=== PATIENT | female | born 1940 ===

== ENCOUNTER 2017-05-25 11:55 | Inpatient (IN) | payer MEDICARE, MEDICAID ==
[2017-05-25 12:00] VITALS: BMI 17.9
[2017-05-25] MEDS ORDERED: Sodium Chloride 0.9% 1,000 ML IV ONE ×2 (12:55→13:33)
[2017-05-25 13:03] LABS: LYMPH # 0.6 K/uL (1.0-4.3); LYMPH % 5.1 % (20.0-40.0); MEAN CORPUSCULAR HEMOGLOBIN 20.8 pg (27.0-31.0); MEAN CORPUSCULAR HGB CONC 31.3 g/dL (33.0-37.0); MEAN PLATELET VOLUME 9.2 fL (7.2-11.7); MONO # 0.3 K/uL (0.0-0.8); MONO % 2.3 % (0.0-10.0); NRBC % 0.2 % (0.0-2.0); PLATELET COUNT 240 K/uL (130-400); RED CELL DISTRIBUTION WIDTH 16.8 % (11.5-14.5)
[2017-05-25 13:05] LABS: MEAN CELL VOLUME 66.4 fL (81.0-99.0); WHITE BLOOD COUNT 11.6 K/uL (4.8-10.8)
[2017-05-25 13:13] LABS: CHLORIDE 96 mmol/L (98-107); POTASSIUM 4.8 mmol/L (3.6-5.2); SODIUM 132 mmol/L (132-148)
[2017-05-25 13:15] LABS: BILIRUBIN,TOTAL 1.8 mg/dL (0.2-1.3); GFR AFRICAN-AMERICAN > 60
[2017-05-25 13:16] LABS: ALB/GLOB RATIO 1.8 (1.0-2.1); ALKALINE PHOSPHATASE 54 U/L (38-126); ALT/SGPT 21 U/L (9-52); AST/SGOT 18 U/L (14-36); BLOOD UREA NITROGEN 28 mg/dL (7-17); TOTAL PROTEIN 7.7 g/dL (6.3-8.3)
--- NOTE | 2017-05-25 13:26 | RAD ---
PROCEDURE: CHEST RADIOGRAPH, 1 VIEW HISTORY: BASELINE COMPARISON: 02/22/2016 FINDINGS: LUNGS: Biapical pleural thickening. Upper lobe granulomatous changes. No focal infiltrate or effusion. PLEURA: No pneumothorax or pleural fluid seen. CARDIOVASCULAR: Left-sided pacemaker. Calcification at the aortic knob. OSSEOUS STRUCTURES: No significant abnormalities. VISUALIZED UPPER ABDOMEN: Normal. OTHER FINDINGS: None. IMPRESSION: Biapical pleural thickening. Upper lobe granulomatous changes. No focal infiltrate or effusion.
[2017-05-25 13:30] LABS: NEUTROPHIL 96 % (50-75); TOTAL CELLS COUNTED 100
[2017-05-25 13:35] LABS: CARBON DIOXIDE 12 mmol/L (22-30); GLUCOSE,RANDOM 345 mg/dL (65-105)
[2017-05-25] MEDS ORDERED: (Novolin R) Insulin Human Regular 100 units/ml vial IV STA (14:03)
[2017-05-25] MEDS ORDERED: (Novolin R) Insulin Human Regular 100 units/ml vial ONE (14:28)
--- NOTE | 2017-05-25 14:29 | C.PDOC ---
History Of Present Illness 76 y/o female brought to ED for evaluation on confusion and loss of appetite for 5 days. Family members at bedside state she started new medications on Thursday and believe symptoms are due to medication. Family states they have tried to make her eat and have only been mildly successful yesterday. No other complaints at this time. Time Seen by Provider: 05/25/17 13:03 Chief Complaint (Nursing): Medical Clearance History Per: Patient, Family History/Exam Limitations: clinical condition Onset/Duration Of Symptoms: Days Current Symptoms Are (Timing): Still Present Past Medical History Reviewed: Historical Data, Nursing Documentation, Vital Signs Vital Signs: Last Vital Signs Temp 97.9 F 05/25/17 12:14 Pulse 60 05/25/17 12:14 Resp 22 05/25/17 12:14 BP 167/60 H 05/25/17 12:14 Pulse Ox 97 05/25/17 14:32 - Medical History PMH: Anemia, Diabetes, Fractures (T12 2014), Gall Bladder Disease (gallstones), HTN, Hypercholesterolemia, Hypothyroidism Surgical History: Cholecystectomy (removal of gallstones 10YRS AGO), Pacemaker - [facility] Procedures TRANSFUSE NONAUT RED BLOOD CELLS IN PERIPH VEIN, PERC (02/22/16) Family History: States: No Known Family Hx - Social History Hx Tobacco Use: No Hx Alcohol Use: No Hx Substance Use: No - Immunization History Hx Tetanus Toxoid Vaccination: No Hx Influenza Vaccination: No Hx Pneumococcal Vaccination: No Review Of Systems Except As Marked, All Systems Reviewed And Found Negative. Constitutional: Negative for: Fever, Chills Cardiovascular: Negative for: Chest Pain Respiratory: Negative for: Shortness of Breath Gastrointestinal: Negative for: Nausea, Vomiting Skin: Negative for: Rash Neurological: Positive for: Confusion. Negative for: Weakness, Numbness Physical Exam - Physical Exam Appears: Confused, Other (Flat affect ) Skin: Warm, Dry, No Rash Head: Atraumatic Eye(s): bilateral: PERRL, EOMI, Scleral Icterus Oral Mucosa: Dry Neck: Normal ROM, Supple Chest: Symmetrical Cardiovascular: Rhythm Regular, No Murmur Respiratory: Normal Breath Sounds, No Rales, No Rhonchi, No Wheezing Gastrointestinal/Abdominal: Soft, No Tenderness, No Guarding, No Rebound Extremity: Normal ROM, Capillary Refill (<2 seconds\) Neurological/Psych: Oriented x3 ED Course And Treatment - Laboratory Results Result Diagrams: 05/25/17 12:59 05/25/17 12:59 Lab Interpretation: Normal (ABG neg,) O2 Sat by Pulse Oximetry: 97 (RA) Pulse Ox Interpretation: Normal - Radiology CXR: Interpreted by Me CXR Interpretation: Yes: No Acute Disease Progress Note: IVF's Reevaluation Time: 15:35 Reassessment Condition: Improved - Physician Consult Information Outcome Of Conversation: 1310 and 1500, d/w reddy Taylor to Obs. Medical Decision Making Medical Decision Making: ? MS changes after starting 3 new psych meds no sources nor signs of infection, not septic. consider dehydration, IVF's started. Disposition Doctor Will See Patient In The: Hospital Counseled Patient/Family Regarding: Studies Performed, Diagnosis - Disposition Disposition: HOSPITALIZED Disposition Time: 15:37 Condition: GOOD - Clinical Impression Clinical Impression: Change in mental status - Scribe Statement The provider has reviewed the documentation as recorded by the Scribparvez Anguiano All medical record entries made by the Charibparvez were at my direction and personally dictated by me. I have reviewed the chart and agree that the record accurately reflects my personal performance of the history, physical exam, medical decision making, and the department course for this patient. I have also personally directed, reviewed, and agree with the discharge instructions and disposition.
[2017-05-25 14:56] LABS: RBC URINE 1 /hpf (0-3); URINE BILIRUBIN NEGATIVE (NEGATIVE); URINE BLOOD NEGATIVE (NEGATIVE); URINE COLOR Yellow (YELLOW); URINE GLUCOSE (UA) 3+ mg/dL (Normal); URINE HYALINE CAST 0-2 /lpf (0-2); URINE KETONE 2+ mg/dL (NEGATIVE); URINE LEUKOCYTE ESTERASE NEG Leu/uL (Negative); URINE PROTEIN 2+ mg/dL (NEGATIVE); URINE UROBILINOGEN NORMAL mg/dL (0.2-1.0); WBC URINE 1 /hpf (0-5)
[2017-05-25 15:31] LABS: DRAW SITE RB
[2017-05-25] MEDS: Sodium Chloride 0.9% 1,000 ML IV SCH (19:12)
--- NOTE | 2017-05-25 20:07 | CP.PCM.PN ---
Subjective - Date & Time of Evaluation Date of Evaluation: 05/25/17 Time of Evaluation: 20:06 - Subjective Subjective: pt with aniemia poorly responding changes in meds noted\ likely meds related CT head MRI ivf sepsis less likly neuro watch neuro consult will f/u Objective - Vital Signs/Intake and Output Vital Signs (last 24 hours): Temp Pulse Resp BP Pulse Ox 97.9 F 61 16 167/43 H 100 05/25/17 12:14 05/25/17 16:06 05/25/17 16:06 05/25/17 16:06 05/25/17 16:06 - Medications Medications: Current Medications Aspirin (Ecotrin) 81 mg PO DAILY [facility] Famotidine (Pepcid) 20 mg IVP DAILY [facility] Heparin Sodium (Porcine) (Heparin) 5,000 units SC Q8 [facility] Sodium Chloride (Sodium Chloride 0.9%) 1,000 mls @ 100 mls/hr IV .Q10H [facility] Last Admin: 05/25/17 19:12 Dose: 100 mls/hr Levothyroxine Sodium (Synthroid) 25 mcg PO DAILY@0630 [facility]
[2017-05-26] MEDS: Sodium Chloride 0.9% 1,000 ML IV SCH ×3 (04:30→14:31)
[2017-05-26] MEDS: Levothyroxine 25 MCG TAB PO SCH (05:45)
[2017-05-26 08:18] LABS: BASO % 0.2 % (0.0-2.0); HEMATOCRIT 25.2 % (34.0-47.0); LYMPH # 0.9 K/uL (1.0-4.3); MEAN CORPUSCULAR HEMOGLOBIN 21.1 pg (27.0-31.0); MEAN CORPUSCULAR HGB CONC 31.4 g/dL (33.0-37.0); MEAN PLATELET VOLUME 9.5 fL (7.2-11.7); MONO # 0.7 K/uL (0.0-0.8); NRBC % 0.2 % (0.0-2.0); PLATELET COUNT 202 K/uL (130-400); RED CELL DISTRIBUTION WIDTH 17.1 % (11.5-14.5); WHITE BLOOD COUNT 11.5 K/uL (4.8-10.8)
[2017-05-26] MEDS: (Novolin R) Insulin Human Regular 100 units/ml vial SC SCH ×4 (08:28→21:47)
[2017-05-26 08:47] LABS: CHLORIDE 107 mmol/L (98-107); SODIUM 137 mmol/L (132-148)
[2017-05-26 08:49] LABS: GFR AFRICAN-AMERICAN > 60
[2017-05-26 08:50] LABS: ALB/GLOB RATIO 1.6 (1.0-2.1); ALKALINE PHOSPHATASE 48 U/L (38-126); ALT/SGPT 24 U/L (9-52); AST/SGOT 16 U/L (14-36); BILIRUBIN,TOTAL 1.5 mg/dL (0.2-1.3); BLOOD UREA NITROGEN 16 mg/dL (7-17); CARBON DIOXIDE 14 mmol/L (22-30); GLUCOSE,RANDOM 237 mg/dL (65-105); HOMOCYSTEINE 4.9 umol/L (4.7-12.6); PHOSPHOROUS 1.8 mg/dL (2.5-4.5); TOTAL PROTEIN 6.1 g/dL (6.3-8.3)
[2017-05-26 08:51] LABS: CALCIUM 7.9 mg/dl (8.6-10.4); MAGNESIUM 1.6 mg/dL (1.6-2.3)
[2017-05-26 09:12] LABS: TOTAL CELLS COUNTED 100
[2017-05-26 09:13] LABS: NEUTROPHIL 88 % (50-75)
--- NOTE | 2017-05-26 11:50 | PCM.PSYCH ---
Initial Psychiatric Evaluation - Initial Psychiatric Evaluation Type of Admission: Voluntary Legal Status: Capacity Chief Complaint (in patient's own words): I dont know.' History of Present Illness and Precipitating Events: This is a 76 years old female, who currently lives with her daughter, with a long history of Alzheimers dementia was escorted to the hospital, as patient refused to eat for these days. As per the hospital charts and information from the family, patients dementia is getting worse and at times patient becomes increasingly confused, irritable and agitated. She sometimes does not recognize her . She cannot perform her ADLs, patient forgets to turn off the stove and to close the doors. As per the family, patient has been becoming increasingly confused for 3 days, that is why she was taken to the ED. Patient was found to be demented during the interview, however, patient denied any irritability and denied any suicidal ideation, any homicidal ideation or any auditory or visual hallucinations. Patient also denied any substance abuse. Current Medications: Active Medications Generic Name Dose Route Start Last Admin Trade Name Jermain PRN Reason Stop Dose Admin Aspirin 81 mg 05/26/17 10:00 05/26/17 09:34 Ecotrin PO 81 mg DAILY TIANNA Administration Famotidine 20 mg 05/26/17 10:00 05/26/17 09:33 Pepcid IVP 20 mg DAILY [facility] Administration Heparin Sodium (Porcine) 5,000 units 05/25/17 22:00 05/26/17 05:45 Heparin SC 5,000 units Q8 [facility] Administration Sodium Chloride 1,000 mls @ 100 mls/hr 05/25/17 18:30 05/26/17 09:30 Sodium Chloride 0.9% IV 100 mls/hr .Q10H [facility] Administration Insulin Human Regular 0 unit 05/26/17 07:30 05/26/17 08:28 Novolin R SC Not Given ACHS [facility] Protocol Levothyroxine Sodium 25 mcg 05/26/17 06:30 05/26/17 05:45 Synthroid PO Not Given DAILY@0630 [facility] Past Psychiatric History - Past Psychiatric History Previous Treatment History: None Pertinent Medical Hx (Current Medical&Sleep Prob, Allergies): Allergies Allergy/AdvReac Type Severity Reaction Status Date / Time No Known Allergies Allergy Verified 05/25/17 11:57 Atorvastatin [Lipitor] 10 mg PO HS 07/24/14 Aspirin [Ecotrin] 81 mg PO DAILY 07/02/16 Insulin Detemir [Levemir] 20 unit SC ACB 07/02/16 Iron Ps Cmplx/Vit B12/FA [Ferrex 150 Forte 25 Mcg-1 mg-150 mg] 1 cap PO DAILY Pregabalin [Lyrica] 75 mg PO BID 07/02/16 ALPRAZolam [Xanax] 0.25 mg PO HS 05/25/17 Calcium Carbonate/Vitamin D3 [Calcium 600 + Vit D Tablet] 1 tab PO DAILY Citalopram [celeXA] 10 mg PO DAILY 05/25/17 Divalproex Sodium 125 mg PO 05/25/17 Donepezil HCl [Aricept] 5 mg PO 05/25/17 Famotidine [Pepcid] 40 mg PO DAILY 05/25/17 Folic Acid 1 mg PO DAILY 05/25/17 Hydroxyzine HCl 25 mg PO 05/25/17 Levothyroxine [Synthroid] 25 mcg PO DAILY 05/25/17 Linagliptin [Tradjenta] 5 mg PO DAILY 05/25/17 Losartan Potassium 50 mg PO DAILY 05/25/17 Multivit-Min/FA/Lycopen/Lutein [Centrum Silver Tablet] 1 tab PO DAILY 05/25/17 metFORMIN [glucOPHAGE] 500 mg PO BID 05/25/17 Review of Systems - Review of Systems All systems: reviewed and no additional remarkable complaints except - Psychiatric Psychiatric: Anxiety, Irritability Mental Status Examination - Personal Presentation Personal Presentation: Looks older than stated age - Affect Affect: Constricted - Motor Activity Motor Activity: Calm - Reliability in Providing Information Reliability in Providing Information: Poor, due to cognitve impairment - Speech Speech: Disorganized - Mood Mood: Anxious - Formal Thought Process Formal Thought Process: Delusions - Obsessions/Compulsions Obsessions: No Compulsions: No - Cognitive Functions Sensorium: Drowsy Attention/Concentration: Easily distracted Estimate of Intelligence: Below average Judgement: Imparied, as evidence by: Poor judgement, Imparied, as evidence by: Lack of insight into illness - Risk Risk: Diminished functioning - Strength & Assets Inventory Strength & Assets Inventory: Family support DSM 5 DX - DSM 5 DSM 5 Diagnosis: 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
--- NOTE | 2017-05-26 12:57 | CON ---
DATE: ATTENDING PHYSICIAN: Candido Gannon MD LOCATION: Room #364, bed B. REASON FOR THE CONSULTATION: Change in mental status. CHIEF COMPLAINT: The patient was brought in by family members with the history of loss of appetite for the last 5 days and the patient was confused. From neurologic point of view, I was called into evaluate her for further management. HISTORY OF PRESENT ILLNESS: Ms. Azeem Gannon is a 76-year-old right-handed Malaysian female who is known to me for her memory impairment in the past as an outpatient. She was brought into [facility] with a history of her confusion, lack of appetite, and poor intake for the last 5 days. Family does not notice any focal weakness. No history of loss of consciousness. No history of involuntary movements. PAST MEDICAL HISTORY: Anemia, diabetes, dyslipidemia, hypothyroidism, dementia, and history of fracture in thoracic spine T12. PERSONAL HISTORY: Denies smoking or alcohol use. ALLERGIES: NO KNOWN ALLERGIES. REVIEW OF SYSTEMS: A 16-point review of system being reviewed. From neuro, change in mental status. MEDICATIONS: Aspirin, Pepcid, Novolin, and IV fluid with the Synthroid. PHYSICAL EXAMINATION: VITAL SIGNS: Blood pressure 149/74, mean arterial pressure of 99, respiratory rate 16, and temperature afebrile. NECK: Supple. No carotid bruits. HEART: Sounds regular. CHEST: Fair air entry. EXTREMITIES: No edema in legs. NEUROLOGICAL: Mental status examination: She is awake, alert, and combative at times. Does not follow any commands. Speech is spontaneous, as well as, fluent. CRANIAL NERVE EXAMINATION: Respond to visual threat. Pupils are reactive to light. Extraocular movement, rolling conjugate gaze noted. Facial asymmetry manifesting as flattening of the right nasolabial fold. Tongue is midline. Good gag. MOTOR EXAMINATION: An outstretched hand with eyes closed. No drift noted. Spontaneous movement more on her left than her right side. Same noted in the lower extremity also. Deep tendon reflexes; biceps, brachialis and triceps 1+ on either side. Deep tendon reflexes in the lower extremities are absent. Plantars are upgoing on right side and left side was downgoing. SENSORY EXAMINATION: Respond to pain symmetrically on both sides. DIAGNOSTIC WORKUP: WBC 11.6, hemoglobin 9.4, hematocrit 30.0, and platelet 240. Sodium 132, potassium 4.8, chloride 96, bicarbonate 28, BUN 1.0, glucose 300, and calcium 9.0. Urinalysis shows 2+ proteinuria, 2 to 3+ glucose and ketones 2+. CONCLUSION: Upon review of her history and neurological examination, Ms. Azeem Gannon has been presenting with new right hemiparesis consistent with possible left subcortical ischemic process secondary to her risk factors including hypertension and diabetes mellitus. However, other possible causes including tumor or bleed should be ruled out. Other possible causes including seizures should be investigated. The patient is also suffering from diabetic neuropathy superimposed with the possible vascular dementia, which is old. The patient is scheduled to have MRI of the brain/electroencephalogram/carotid Doppler. I agree with the aspirin and the diabetic control. The patient should be kept on DVT prophylaxis and fall precautions. The patient will be followed closely with you. Trevon Berry MD
[2017-05-26 13:06] LABS: FREE T4 1.56 ng/dL (0.78-2.19)
[2017-05-26 13:19] LABS: THYROID STIMULATING HORMONE 3.34 mIU/L (0.46-4.68)
--- NOTE | 2017-05-26 15:04 | CARD ---
APPROVED REPORT EKG Measurement Heart [id number] <Conclusion> Normal sinus Intrinsic QRS morphology is RBBB with tight axis deviation. Ventricular-paced rhythm with frequent atrial-paced complexes Abnormal ECG
[2017-05-26 17:47] VITALS: RESP 20
--- NOTE | 2017-05-26 18:39 | CT ---
PROCEDURE: CT HEAD WITHOUT CONTRAST. HISTORY: r/o stroke COMPARISON: Noncontrast head CT performed 03/31/14 TECHNIQUE: Axial computed tomography images were obtained through the head/brain without intravenous contrast. Radiation dose: Total exam DLP = 1284.98 mGy-cm. This CT exam was performed using one or more of the following dose reduction techniques: Automated exposure control, adjustment of the mA and/or kV according to patient size, and/or use of iterative reconstruction technique. FINDINGS: HEMORRHAGE: No intracranial hemorrhage. BRAIN: Diffuse atrophy with prominence of the ventricles and sulci noted. No mass effect or edema. Dense intracranial atherosclerosis. Scattered periventricular and subcortical white matter hypodensities, which are nonspecific, but often seen with chronic microvascular ischemic disease. Please note that MRI with diffusion imaging is more sensitive in the detection of acute ischemic event. VENTRICLES: Ventricular prominence remains out of proportion to sulcal size and may be seen in the setting of NPH; correlate clinically. CALVARIUM: Unremarkable. PARANASAL SINUSES: Unremarkable as visualized. No significant inflammatory changes. MASTOID AIR CELLS: Unremarkable as visualized. No inflammatory changes. OTHER FINDINGS: None. IMPRESSION: Nonspecific white matter changes. Generalized atrophy. Ventricular prominence remains out of proportion to sulcal size and may be seen in the setting of NPH; correlate clinically.
--- NOTE | 2017-05-26 22:05 | CP.PCM.HP ---
History of Present Illness - History of Present Illness History of Present Illness: Chief complaint: Altered mental status. History present illness: 76-year-old female with history of hypertension, diabetes, anemia. Patient also having advancing dementia, recently seen by psychiatrist. Patient medication was recently adjusted, Lyrica 50 mg stopped, patient was started on Depakote, Aricept. After starting the medication, patient started having slowly worsening condition. According to the family patient was not taking anything by mouth for 3 days, she was becoming more and weak, she was also not eating well. Family was trained to give the liquid diet, but the patient was spitting out. She was also having increasing sleepy, very slow to respond, and the family was brought her to the emergency room. In the emergency room patient was somewhat very sleepy, not responding. She was looking very dry mucosa. In the past patient had a T12 compression fracture, and was having some pain around the time. She was also severely anemic, receiving intravenous iron infusion periodically A month ago patient was seen by me in the office, at the time patient was awake and responding, and the alert. Patient was ambulating with a cane. Past medical history hypertension, diabetes Past surgical history: Cataract surgery, cholecystectomy, pacemaker. Family history: Father mother natural cause. Patient has 3 brother to are okay, one brother , she also has a 3 sister. Social history: Patient denies any alcohol or smoking. She drinks coffee daily. No current exercise. Is going to the adult daycare Current medications reviewed Review of systems: Patient occasionally having headache, denies any sinus symptoms, no chest pain, no shortness of breath noted, patient had a right eye injections in the past secondary to diabetic retinopathy. Burning stop noted. Denies any urinary symptoms. On and off muscle pain noted On examination: HEENT PERRLA, neck supple, thin and emaciated, pale mucous membrane No thyromegaly was noted and no cervical adenopathy noted Chest bilateral good air entry, no wheezing or rales noted CVS regular heart sound, no murmur Abdomen soft and no organomegaly Extremities no pedal edema, no leg swelling, pedal pulses are good. 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 Responding to deep stability. No focal deficit noted Assessment/recommendation: 76-year-old female with history of anemia, hypertension, diabetes, history of pacemaker. T12 vertebral compression fracture in the past. Worsening dementia. Now admitted with worsening altered mental status. Labs reviewed Less likely infectious process. More likely medication induced. All the medication is currently off. We'll continue to monitor neurologically. IV fluid, IV hydration, glucose control, DVT and GI prophylaxis. Neurology, psychology evaluation. Will follow the patient Present on Admission - Present on Admission Any Indicators Present on Admission: No History of DVT/PE: No History of Uncontrolled Diabetes: No Urinary Catheter: No Decubitus Ulcer Present: No Past Patient History - Past Medical History & Family History Past Medical History?: Yes - Past Social History Smoking Status: Never Smoked - CARDIAC Hx Cardiac Disorders: Yes Hx Hypercholesterolemia: Yes Hx Hypertension: Yes Hx Pacemaker: Yes - PULMONARY Hx Respiratory Disorders: No - NEUROLOGICAL Hx Neurological Disorder: No Other/Comment: altered mental status - HEENT Hx HEENT Problems: Yes Hx Blind: Yes (LEFT EYE) Other/Comment: LASER SURGERY ON RIGHT RETINA 2013, DUE TO RETINAL BLEEDING - RENAL Hx Chronic Kidney Disease: No - ENDOCRINE/METABOLIC Hx Endocrine Disorders: Yes Hx Hypothyroidism: Yes - HEMATOLOGICAL/ONCOLOGICAL Hx Blood Disorders: Yes Hx Anemia: Yes - INTEGUMENTARY Hx Dermatological Problems: No - MUSCULOSKELETAL/RHEUMATOLOGICAL Hx Musculoskeletal Disorders: Yes Hx Falls: No Hx Fractures: Yes (T12014) - GASTROINTESTINAL Hx Gastrointestinal Disorders: Yes Hx Gall Bladder Disease: Yes (gallstones) - GENITOURINARY/GYNECOLOGICAL Hx Genitourinary Disorders: No - PSYCHIATRIC Hx Psychophysiologic Disorder: No Hx Substance Use: No Other/Comment: altered mental status - SURGICAL HISTORY Hx Surgeries: Yes Hx Cholecystectomy: Yes (removal of gallstones 10YRS AGO) - ANESTHESIA Hx Anesthesia: Yes Hx Anesthesia Reactions: No Hx Malignant Hyperthermia: No Has any member of the family had a problem w/ anesthesia?: No Meds Allergies/Adverse Reactions: Allergies Allergy/AdvReac Type Severity Reaction Status Date / Time No Known Allergies Allergy Verified 05/25/17 11:57 Results - Vital Signs Recent Vital Signs: Last Vital Signs Temp 98.1 F 05/26/17 16:00 Pulse 60 05/26/17 16:00 Resp 20 05/26/17 16:00 BP 129/52 L 05/26/17 16:00 Pulse Ox 100 05/26/17 16:00 - Labs Result Diagrams: 05/26/17 08:09 05/26/17 08:09 Labs: Laboratory Results - last 24 hr 05/25/17 05/26/17 05/26/17 22:16 07:29 08:09 WBC 11.5 H RBC 3.76 L Hgb 7.9 L Hct 25.2 L MCV 67.0 L MCH 21.1 L MCHC 31.4 L RDW 17.1 H Plt Count 202 MPV 9.5 Neut % (Auto) 85.8 H Lymph % (Auto) 8.0 L [place] % (Auto) 6.0 Eos % (Auto) 0.0 Baso % (Auto) 0.2 Neut # 9.9 H Lymph # 0.9 L [place] # 0.7 Eos # 0.0 Baso # 0.0 Neutrophils % (Manual) 88 H Lymphocytes % (Manual) 8 L Monocytes % (Manual) 4 Platelet Estimate Normal Hypochromasia (manual) Moderate Poikilocytosis (manual Moderate Anisocytosis (manual) Slight Microcytosis (manual) Moderate Macrocytosis (manual) Slight Target Cells Slight Tear Drop Cells Moderate Ovalocytes Moderate [place] Cells Moderate ESR Sodium Potassium Chloride Carbon Dioxide Anion Gap BUN Creatinine Est GFR ( Amer) Est GFR (Non-Af Amer) POC Glucose (mg/dL) 300 H 281 H Random Glucose Hemoglobin A1c Calcium Phosphorus Magnesium Total Bilirubin AST ALT Alkaline Phosphatase C-React Prot High Sens Total Protein Albumin Globulin Albumin/Globulin Ratio Vitamin B12 Homocysteine Free T4 TSH 3rd Generation 05/26/17 05/26/17 05/26/17 08:09 08:09 08:09 WBC RBC Hgb Hct MCV MCH MCHC RDW Plt Count MPV Neut % (Auto) Lymph % (Auto) [place] % (Auto) Eos % (Auto) Baso % (Auto) Neut # Lymph # [place] # Eos # Baso # Neutrophils % (Manual) Lymphocytes % (Manual) Monocytes % (Manual) Platelet Estimate Hypochromasia (manual) Poikilocytosis (manual Anisocytosis (manual) Microcytosis (manual) Macrocytosis (manual) Target Cells Tear Drop Cells Ovalocytes [place] Cells ESR 10 Sodium 137 Potassium 4.0 Chloride 107 Carbon Dioxide 14 L Anion Gap 20 BUN 16 Creatinine 0.7 Est GFR ( Amer) > 60 Est GFR (Non-Af Amer) > 60 POC Glucose (mg/dL) Random Glucose 237 H Hemoglobin A1c 7.0 H Calcium 7.9 L Phosphorus 1.8 L Magnesium 1.6 Total Bilirubin 1.5 H AST 16 ALT 24 Alkaline Phosphatase 48 C-React Prot High Sens Total Protein 6.1 L Albumin 3.7 Globulin 2.4 Albumin/Globulin Ratio 1.6 Vitamin B12 Homocysteine Free T4 TSH 3rd Generation 05/26/17 05/26/17 05/26/17 08:09 11:07 12:17 WBC RBC Hgb Hct MCV MCH MCHC RDW Plt Count MPV Neut % (Auto) Lymph % (Auto) [place] % (Auto) Eos % (Auto) Baso % (Auto) Neut # Lymph # [place] # Eos # Baso # Neutrophils % (Manual) Lymphocytes % (Manual) Monocytes % (Manual) Platelet Estimate Hypochromasia (manual) Poikilocytosis (manual Anisocytosis (manual) Microcytosis (manual) Macrocytosis (manual) Target Cells Tear Drop Cells Ovalocytes [place] Cells ESR Sodium Potassium Chloride Carbon Dioxide Anion Gap BUN Creatinine Est GFR ( Amer) Est GFR (Non-Af Amer) POC Glucose (mg/dL) 300 H Random Glucose Hemoglobin A1c Calcium Phosphorus Magnesium Total Bilirubin AST ALT Alkaline Phosphatase C-React Prot High Sens 1.11 Total Protein Albumin Globulin Albumin/Globulin Ratio Vitamin B12 > 1000 H Homocysteine 4.9 Free T4 1.56 TSH 3rd Generation 3.34 05/26/17 05/26/17 16:41 21:04 WBC RBC Hgb Hct MCV MCH MCHC RDW Plt Count MPV Neut % (Auto) Lymph % (Auto) [place] % (Auto) Eos % (Auto) Baso % (Auto) Neut # Lymph # [place] # Eos # Baso # Neutrophils % (Manual) Lymphocytes % (Manual) Monocytes % (Manual) Platelet Estimate Hypochromasia (manual) Poikilocytosis (manual Anisocytosis (manual) Microcytosis (manual) Macrocytosis (manual) Target Cells Tear Drop Cells Ovalocytes [place] Cells ESR Sodium Potassium Chloride Carbon Dioxide Anion Gap BUN Creatinine Est GFR ( Amer) Est GFR (Non-Af Amer) POC Glucose (mg/dL) 353 H 233 H Random Glucose Hemoglobin A1c Calcium Phosphorus Magnesium Total Bilirubin AST ALT Alkaline Phosphatase C-React Prot High Sens Total Protein Albumin Globulin Albumin/Globulin Ratio Vitamin B12 Homocysteine Free T4 TSH 3rd Generation
[2017-05-27] MEDS: Sodium Chloride 0.9% 1,000 ML IV SCH ×4 (01:39→17:29)
[2017-05-27] MEDS: Levothyroxine 25 MCG TAB PO SCH (05:33)
[2017-05-27 07:43] LABS: BASO % 0.3 % (0.0-2.0); EOS % 0.5 % (0.0-4.0); HEMATOCRIT 23.8 % (34.0-47.0); INR 1.1; LYMPH # 1.2 K/uL (1.0-4.3); LYMPH % 20.1 % (20.0-40.0); MEAN CELL VOLUME 65.6 fL (81.0-99.0); MEAN CORPUSCULAR HEMOGLOBIN 21.2 pg (27.0-31.0); MEAN CORPUSCULAR HGB CONC 32.3 g/dL (33.0-37.0); MONO # 0.5 K/uL (0.0-0.8); MONO % 7.7 % (0.0-10.0); NRBC % 0.2 % (0.0-2.0); RED CELL DISTRIBUTION WIDTH 17.8 % (11.5-14.5); WHITE BLOOD COUNT 5.9 K/uL (4.8-10.8)
[2017-05-27] MEDS: (Novolin R) Insulin Human Regular 100 units/ml vial SC SCH ×4 (08:30→21:06)
[2017-05-27 08:32] LABS: CHLORIDE 108 mmol/L (98-107); POTASSIUM 3.5 mmol/L (3.6-5.2); SODIUM 137 mmol/L (132-148)
[2017-05-27 08:34] LABS: GFR AFRICAN-AMERICAN > 60
[2017-05-27 08:35] LABS: ALB/GLOB RATIO 1.6 (1.0-2.1); ALKALINE PHOSPHATASE 43 U/L (38-126); ALT/SGPT 22 U/L (9-52); AST/SGOT 17 U/L (14-36); BILIRUBIN,TOTAL 1.6 mg/dL (0.2-1.3); BLOOD UREA NITROGEN 14 mg/dL (7-17); CALCIUM 8.2 mg/dl (8.6-10.4); CARBON DIOXIDE 18 mmol/L (22-30); GLUCOSE,RANDOM 143 mg/dL (65-105)
[2017-05-27 08:56] LABS: FOLATE > 20.0 ng/mL
[2017-05-27] MEDS: Ferric Sodium Gluconat Complex 62.5 mg/5 ml Vial IVPB SCH (09:21)
[2017-05-28] MEDS: Sodium Chloride 0.9% 1,000 ML IV SCH ×2 (03:40→05:47)
[2017-05-28] MEDS: Levothyroxine 25 MCG TAB PO SCH (05:45)
[2017-05-28] MEDS: (Novolin R) Insulin Human Regular 100 units/ml vial SC SCH ×4 (08:29→22:10)
--- NOTE | 2017-05-28 09:35 | CON ---
DATE: 05/28/2017 TIME OF EVALUATION: 6:55 a.m. NEUROLOGICAL PROBLEM: Change in mental status, possible new right hemiparesis. PHYSICAL EXAMINATION: VITAL SIGNS: Blood pressure 145/60, mean arterial pressure of 88, respiratory rate of 16, temperature 97.3, and pulse rate 67. The patient's, recently, CT of the head was done which showed no acute pathology, hydrocephalus, or periventricular ischemic changes. No acute stroke noted. MRI was not done because of her pacemaker. On examination, the patient's mental status is back to normal, she could recognize me, so she is smiling, follows commands. The patient is also on prophylaxis. The patient should get out of the bed and physical therapy should be started. When medically stable, the patient can be discharged, probably to rehabilitation. Acute rehabilitation should be preferable to improve her gait. The patient will be followed while she is in the hospital. Trevon Berry MD
[2017-05-28] MEDS: Ferric Sodium Gluconat Complex 62.5 mg/5 ml Vial IVPB SCH (11:27)
--- NOTE | 2017-05-28 15:02 | PCM.PYCHPN ---
Psychiatric Progress Note - Psychiatric Progress Note Patient seen today, length of contact: 15 min Patient Chief Complaint: I M feeling better.' Problems Identified/Issues Discussed: Patient seen and evaluated, chart reviewed and discussed with the nurse. Patient reports improvement in her irritability. As per family she is more coherent and more alert, awake and oriented than before. She has started eating and started talking to the family. However she remained demented and forgetful. Patient is more calm and more cooperative now. Supportive therapy and psychoeducation were given Medication Change: No Medical Record Reviewed: Yes Mental Status Examination - Cognitive Function Orientation: Person, Place Memory: Impaired Attention: WNL Concentration: WNL Association: Loose Fund of Knowledge: Poor - Mood Mood: Anxious - Affect Affect: Constricted - Formal Thought Process Formal Thought Process: No Impairment - Suicidal Ideation Suicidal Ideation: No - Homicidal Ideation Homicidal Ideation: No Goal/Treatment Plan - Goal/Treatment Plan Need for Continued Stay: Discharge may exacerbated symptoms, Severe functional impairment Progress Toward Problem(s) and Goals/Treatment Plan: 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
[2017-05-29] MEDS: Levothyroxine 25 MCG TAB PO SCH (05:40)
[2017-05-29 08:25] VITALS: BP 167/55; PULSE 61; TEMP 97.9; O2SAT 100
[2017-05-29] MEDS: (Novolin R) Insulin Human Regular 100 units/ml vial SC SCH ×2 (08:53→12:13)
--- NOTE | 2017-05-29 10:52 | EEG ---
DATE: 05/26/2017 This is a 16-channel electroencephalogram of an awake and drowsy adult. During the study, photic stimulation was performed, hyperventilation was not performed. The resting electroencephalogram consists of high amplitude 3 to 4 Hz delta mixed with low theta activities noted on parietal and occipital leads. Persistent frontal and temporal muscle artifacts contaminated the background rhythm. The photic stimulation did not evoke driving response noted at 2 to 20 Hz. IMPRESSION: This is abnormal electroencephalogram because of persistent slowing throughout the record suggestive of bilateral cerebral dysfunction. This probably is secondary to metabolic vascular degenerative process. However, during the study, neither electroencephalographic paroxysmal activities nor focal slowing noted. Trevon Berry MD
[2017-05-29] MEDS: Ferric Sodium Gluconat Complex 62.5 mg/5 ml Vial IVPB SCH (11:14)
[2017-05-29 12:00] LABS: BASO % 0.3 % (0.0-2.0); EOS # 0.1 K/uL (0.0-0.7); EOS % 1.2 % (0.0-4.0); HEMATOCRIT 21.5 % (34.0-47.0); LYMPH # 1.4 K/uL (1.0-4.3); LYMPH % 26.9 % (20.0-40.0); MEAN CELL VOLUME 64.6 fL (81.0-99.0); MEAN CORPUSCULAR HEMOGLOBIN 21.1 pg (27.0-31.0); MEAN CORPUSCULAR HGB CONC 32.6 g/dL (33.0-37.0); MEAN PLATELET VOLUME 9.6 fL (7.2-11.7); MONO # 0.6 K/uL (0.0-0.8); MONO % 11.2 % (0.0-10.0); NRBC % 0.7 % (0.0-2.0); RED CELL DISTRIBUTION WIDTH 16.7 % (11.5-14.5); WHITE BLOOD COUNT 5.1 K/uL (4.8-10.8)
[2017-05-29 12:52] LABS: CHLORIDE 100 mmol/L (98-107); POTASSIUM 3.1 mmol/L (3.6-5.2); SODIUM 135 mmol/L (132-148)
[2017-05-29 12:55] LABS: BLOOD UREA NITROGEN 8 mg/dL (7-17); CARBON DIOXIDE 24 mmol/L (22-30); GFR AFRICAN-AMERICAN > 60; GLUCOSE,RANDOM 197 mg/dL (65-105)
[2017-05-29 12:56] LABS: CALCIUM 8.5 mg/dl (8.6-10.4)
[2017-05-29] MEDS ORDERED: Potassium Chloride 20 mEq/15 ml LIQ UD PO ONE (13:01)
--- NOTE | 2017-05-29 14:00 | CP.PCM.PN ---
Subjective - Date & Time of Evaluation Date of Evaluation: 05/29/17 Time of Evaluation: 13:57 - Subjective Subjective: PT SEEN BY [employer] CONSULTANT AND DR. KHAN DURING ROUNDS. PT CLEARED FOR D/C TODAY AFTER FERRLICET INFUSION. PT HAS APPT PER DAUGHTER ON 06/[address] Divina PULIDO-- USUALLY GETS OUTPATIENT FE OR BLOOD TRANSFUSIONS. HAS PO FE SUPPLEMENTS; FAMILY NOT OPEN TO TRANSFUSION THIS VISIT. PT TO LEAVE WITH WALKER FOR GAIT. ALL HOME MEDS REVIEWED W FAMILY. REFUSING AT THIS TIME TO CONTINUE DEPAKOTE AND ATARAX-- THEY BELIEVE PT'S RECENT HOSPITALIZATION WAS CAUSED BY THESE MEDS. NO FURTHER ORDERS. Objective - Vital Signs/Intake and Output Vital Signs (last 24 hours): Temp Pulse Resp BP Pulse Ox 97.9 F 61 20 167/55 H 100 05/29/17 08:23 05/29/17 08:23 05/29/17 08:23 05/29/17 08:23 05/29/17 08:23 Intake and Output: 05/29/17 05/29/17 06:59 18:59 Intake Total 100 Balance 100 - Medications Medications: Current Medications Aspirin (Ecotrin) 81 mg PO DAILY [facility] Last Admin: 05/29/17 11:14 Dose: 81 mg Famotidine (Pepcid) 20 mg IVP DAILY [facility] Last Admin: 05/29/17 11:14 Dose: 20 mg Ferric Sodium Gluconate Complex (Ferrlecit) 125 mg IVPB DAILY [facility] Stop: 06/04/17 10:01 Last Admin: 05/29/17 11:14 Dose: 125 mg Heparin Sodium (Porcine) (Heparin) 5,000 units SC Q8 [facility] Last Admin: 05/29/17 05:40 Dose: 5,000 units Insulin Human Regular (Novolin R) 0 unit SC ACHS [facility] PRN Reason: Protocol Last Admin: 05/29/17 12:13 Dose: 3 unit Levothyroxine Sodium (Synthroid) 25 mcg PO DAILY@0630 [facility] Last Admin: 05/29/17 05:40 Dose: 25 mcg - Labs Labs: 05/29/17 11:49 05/29/17 11:49 PT 11.8 SECONDS (9.7-12.2) 05/27/17 07:20 INR 1.1 05/27/17 07:20 APTT 38 SECONDS (21-34) H 05/27/17 07:20
--- NOTE | 2017-05-29 14:51 | CP.PCM.PN ---
Subjective - Date & Time of Evaluation Date of Evaluation: 05/27/17 Time of Evaluation: 14:50 - Subjective Subjective: Patient today is still confused. Not eating well. Poor appetite. But more awake than yesterday. On examination: HEENT PERRLA, neck supple No thyromegaly was noted and no cervical adenopathy noted Chest bilateral good air entry, no wheezing or rales noted CVS regular heart sound, no murmur Abdomen soft and no organomegaly Extremities no pedal edema, no leg swelling, pedal pulses are good. Confused. Labs reviewed. Anemia noted. Assessment and recommendation: 76-year-old female with history of dementia, anemia, hypertension, diabetes, pacemaker. Admitted with altered mental status. Improving. Most likely secondary to metabolic and also drug induced. Continue to monitor. Will follow the patient Objective - Vital Signs/Intake and Output Vital Signs (last 24 hours): Temp Pulse Resp BP Pulse Ox 97.9 F 61 20 167/55 H 100 05/29/17 08:23 05/29/17 08:23 05/29/17 08:23 05/29/17 08:23 05/29/17 08:23 Intake and Output: 05/29/17 05/29/17 06:59 18:59 Intake Total 100 Balance 100 - Medications Medications: Current Medications Aspirin (Ecotrin) 81 mg PO DAILY [facility] Last Admin: 05/29/17 11:14 Dose: 81 mg Famotidine (Pepcid) 20 mg IVP DAILY [facility] Last Admin: 05/29/17 11:14 Dose: 20 mg Ferric Sodium Gluconate Complex (Ferrlecit) 125 mg IVPB DAILY [facility] Stop: 06/04/17 10:01 Last Admin: 05/29/17 11:14 Dose: 125 mg Heparin Sodium (Porcine) (Heparin) 5,000 units SC Q8 [facility] Last Admin: 05/29/17 13:57 Dose: 5,000 units Insulin Human Regular (Novolin R) 0 unit SC ACHS [facility] PRN Reason: Protocol Last Admin: 05/29/17 12:13 Dose: 3 unit Levothyroxine Sodium (Synthroid) 25 mcg PO DAILY@0630 [facility] Last Admin: 05/29/17 05:40 Dose: 25 mcg - Labs Labs: 05/29/17 11:49 05/29/17 11:49 PT 11.8 SECONDS (9.7-12.2) 05/27/17 07:20 INR 1.1 05/27/17 07:20 APTT 38 SECONDS (21-34) H 05/27/17 07:20
--- NOTE | 2017-05-29 14:52 | CP.PCM.DIS ---
Provider - Provider Date of Admission: 05/25/17 14:02 Attending physician: Bernadette Drummond MD Time Spent in preparation of Discharge (in minutes): 45 Hospital Course - Lab Results Lab Results: Micro Results 05/25/17 Unknown Urine,Catheterized Urine Culture - Final No Growth (<1,000 CFU/ML) Most Recent Lab Values WBC 5.1 K/uL (4.8-10.8) 05/29/17 11:49 RBC 3.33 Mil/uL (3.80-5.20) L 05/29/17 11:49 Hgb 7.0 g/dL (11.0-16.0) L 05/29/17 11:49 Hct 21.5 % (34.0-47.0) L 05/29/17 11:49 MCV 64.6 fL (81.0-99.0) L 05/29/17 11:49 MCH 21.1 pg (27.0-31.0) L 05/29/17 11:49 MCHC 32.6 g/dL (33.0-37.0) L 05/29/17 11:49 RDW 16.7 % (11.5-14.5) H 05/29/17 11:49 Plt Count 214 K/uL (130-400) 05/29/17 11:49 MPV 9.6 fL (7.2-11.7) 05/29/17 11:49 Neut % (Auto) 60.4 % (50.0-75.0) 05/29/17 11:49 Lymph % (Auto) 26.9 % (20.0-40.0) 05/29/17 11:49 [place] % (Auto) 11.2 % (0.0-10.0) H 05/29/17 11:49 Eos % (Auto) 1.2 % (0.0-4.0) 05/29/17 11:49 Baso % (Auto) 0.3 % (0.0-2.0) 05/29/17 11:49 Neut # 3.1 K/uL (1.8-7.0) 05/29/17 11:49 Lymph # 1.4 K/uL (1.0-4.3) 05/29/17 11:49 Greenlee # 0.6 K/uL (0.0-0.8) 05/29/17 11:49 Eos # 0.1 K/uL (0.0-0.7) 05/29/17 11:49 Baso # 0.0 K/uL (0.0-0.2) 05/29/17 11:49 Neutrophils % (Manual) 88 % (50-75) H 05/26/17 08:09 Band Neutrophils % 1 % (0-2) 05/25/17 12:59 Lymphocytes % (Manual) 8 % (20-40) L 05/26/17 08:09 Monocytes % (Manual) 4 % (0-10) 05/26/17 08:09 Platelet Estimate Normal (NORMAL) 05/26/17 08:09 Polychromasia Slight 05/25/17 12:59 Hypochromasia (manual) Moderate 05/26/17 08:09 Poikilocytosis (manual Moderate 05/26/17 08:09 Anisocytosis (manual) Slight 05/26/17 08:09 Microcytosis (manual) Moderate 05/26/17 08:09 Macrocytosis (manual) Slight 05/26/17 08:09 Target Cells Slight 05/26/17 08:09 Tear Drop Cells Moderate 05/26/17 08:09 Ovalocytes Moderate 05/26/17 08:09 Kiah Cells Moderate 05/26/17 08:09 Schistocytes Slight 05/25/17 12:59 ESR 10 mm/hr (0-20) 05/26/17 08:09 PT 11.8 SECONDS (9.7-12.2) 05/27/17 07:20 INR 1.1 05/27/17 07:20 APTT 38 SECONDS (21-34) H 05/27/17 07:20 Puncture Site Rb 05/25/17 15:28 pCO2 27 mm/Hg (35-45) L 05/25/17 15:28 pO2 90 mm/Hg (80-100) 05/25/17 15:28 HCO3 14.4 mmol/L (21-28) L 05/25/17 15:28 ABG pH 7.26 (7.35-7.45) L 05/25/17 15:28 ABG Total CO2 12.9 mmol/L (22-28) L 05/25/17 15:28 ABG O2 Saturation 98.6 % (95-98) H 05/25/17 15:28 ABG Base Excess -13.4 mmol/L (-2.0-3.0) L 05/25/17 15:28 Dhruv Test Na 05/25/17 15:28 ABG Potassium 3.3 mmol/L (3.6-5.2) L 05/25/17 15:28 A-a O2 Difference 26.0 mm/Hg 05/25/17 15:28 Respiratory Index 0.3 05/25/17 15:28 Sodium 135.0 mmol/l (132-148) 05/25/17 15:28 Chloride 102.0 mmol/L (98-107) 05/25/17 15:28 Glucose 246 mg/dl (65-105) H 05/25/17 15:28 Lactate 1.3 mmol/L (0.7-2.1) 05/25/17 15:28 FiO2 21.0 % 05/25/17 15:28 Sodium 135 mmol/L (132-148) 05/29/17 11:49 Potassium 3.1 mmol/L (3.6-5.2) L 05/29/17 11:49 Chloride 100 mmol/L (98-107) 05/29/17 11:49 Carbon Dioxide 24 mmol/L (22-30) 05/29/17 11:49 Anion Gap 14 (10-20) 05/29/17 11:49 BUN 8 mg/dL (7-17) 05/29/17 11:49 Creatinine 0.6 MG/DL (0.7-1.2) L 05/29/17 11:49 Est GFR ( Amer) > 60 05/29/17 11:49 Est GFR (Non-Af Amer) > 60 05/29/17 11:49 POC Glucose (mg/dL) 274 mg/dL (65-110) H 05/29/17 11:36 Random Glucose 197 mg/dL (65-105) H 05/29/17 11:49 Hemoglobin A1c 7.0 % (4.2-6.5) H 05/26/17 08:09 Calcium 8.5 mg/dl (8.6-10.4) L 05/29/17 11:49 Phosphorus 1.8 mg/dL (2.5-4.5) L 05/26/17 08:09 Magnesium 1.6 mg/dL (1.6-2.3) 05/26/17 08:09 Total Bilirubin 1.6 mg/dL (0.2-1.3) H 05/27/17 07:20 AST 17 U/L (14-36) 05/27/17 07:20 ALT 22 U/L (9-52) 05/27/17 07:20 Alkaline Phosphatase 43 U/L (38-126) 05/27/17 07:20 Ammonia < 9 umol/L (9-33) L 05/27/17 07:20 C-React Prot High Sens 1.11 mg/L (1.00-3.00) 05/26/17 12:17 Total Protein 6.0 g/dL (6.3-8.3) L 05/27/17 07:20 Albumin 3.7 g/dL (3.5-5.0) 05/27/17 07:20 Globulin 2.3 gm/dL (2.2-3.9) 05/27/17 07:20 Albumin/Globulin Ratio 1.6 (1.0-2.1) 05/27/17 07:20 Vitamin B12 > 1000 pg/mL (239-931) H 05/26/17 08:09 Folate > 20.0 ng/mL 05/27/17 07:20 Homocysteine 4.9 umol/L (4.7-12.6) 05/26/17 08:09 Free T4 1.56 ng/dL (0.78-2.19) 05/26/17 12:17 TSH 3rd Generation 3.34 mIU/L (0.46-4.68) 05/26/17 12:17 Arterial Blood Potassium 3.3 mmol/L (3.6-5.2) L 05/25/17 15:28 Urine Color Yellow (YELLOW) 05/25/17 14:33 Urine Clarity Clear (Clear) 05/25/17 14:33 Urine pH 5.0 (5.0-8.0) 05/25/17 14:33 Ur Specific [place] 1.014 (1.003-1.030) 05/25/17 14:33 Urine Protein 2+ mg/dL (NEGATIVE) H 05/25/17 14:33 Urine Glucose (UA) 3+ mg/dL (Normal) H 05/25/17 14:33 Urine Ketones 2+ mg/dL (NEGATIVE) H 05/25/17 14:33 Urine Blood Negative (NEGATIVE) 05/25/17 14:33 Urine Nitrate Negative (NEGATIVE) 05/25/17 14:33 Urine Bilirubin Negative (NEGATIVE) 05/25/17 14:33 Urine Urobilinogen Normal mg/dL (0.2-1.0) 05/25/17 14:33 Ur Leukocyte Esterase Neg Judith/uL (Negative) 05/25/17 14:33 Urine WBC (Auto) 1 /hpf (0-5) 05/25/17 14:33 Urine RBC (Auto) 1 /hpf (0-3) 05/25/17 14:33 Hyaline Casts 0-2 /lpf (0-2) 05/25/17 14:33 - Hospital Course Hospital Course: History of Present Illness: Chief complaint: Altered mental status. History present illness: 76-year-old female with history of hypertension, diabetes, anemia. Patient also having advancing dementia, recently seen by psychiatrist. Patient medication was recently adjusted, Lyrica 50 mg stopped, patient was started on Depakote, Aricept. After starting the medication, patient started having slowly worsening condition. According to the family patient was not taking anything by mouth for 3 days, she was becoming more and weak, she was also not eating well. Family was trained to give the liquid diet, but the patient was spitting out. She was also having increasing sleepy, very slow to respond, and the family was brought her to the emergency room. In the emergency room patient was somewhat very sleepy, not responding. She was looking very dry mucosa. In the past patient had a T12 compression fracture, and was having some pain around the time. She was also severely anemic, receiving intravenous iron infusion periodically A month ago patient was seen by me in the office, at the time patient was awake and responding, and the alert. Patient was ambulating with a cane. Past medical history hypertension, diabetes Past surgical history: Cataract surgery, cholecystectomy, pacemaker. Family history: Father mother natural cause. Patient has 3 brother to are okay, one brother , she also has a 3 sister. Social history: Patient denies any alcohol or smoking. She drinks coffee daily. No current exercise. Is going to the adult daycare Current medications reviewed Review of systems: Patient occasionally having headache, denies any sinus symptoms, no chest pain, no shortness of breath noted, patient had a right eye injections in the past secondary to diabetic retinopathy. Burning stop noted. Denies any urinary symptoms. On and off muscle pain noted On examination: HEENT PERRLA, neck supple, thin and emaciated, pale mucous membrane No thyromegaly was noted and no cervical adenopathy noted Chest bilateral good air entry, no wheezing or rales noted CVS regular heart sound, no murmur Abdomen soft and no organomegaly Extremities no pedal edema, no leg swelling, pedal pulses are good. [employer] drowsy, poorly responding. Responding to deep stability. No focal deficit noted Assessment/recommendation: 76-year-old female with history of anemia, hypertension, diabetes, history of pacemaker. T12 vertebral compression fracture in the past. Worsening dementia. Now admitted with worsening altered mental status. Labs reviewed Less likely infectious process. More likely medication induced. All the medication is currently off. We'll continue to monitor neurologically. IV fluid, IV hydration, glucose control, DVT and GI prophylaxis. Neurology, psychology evaluation. Will follow the patient Course in the hospital. Patient's at all psychotic medications was on hold. Including Aricept IV fluid continued. Slowly patient started improving. More awake and responding. Glucose is slightly on the high side. I spoke to the patient's family, able to antipsychotic medication. Until patient is much stable did not restart the medicine Physical therapy started. Clinically improving. Patient is currently stable at this time. Spoke to the family. Clinical stable for discharge. Final diagnosis: Metabolic encephalopathy. Drug-induced most likely. Improving at this time. Dementia. Associate with the worsening recently. Diabetes, hypertension, pacemaker. Anemia diffuse intravenous iron injection. Will continue the current treatment. Will follow the patient Possible discharge plan today. Spoke to the family Discharge Plan - Discharge Medications Prescriptions: Walker [Rolling Walker] 1 dev XX PRN PRN #1 dev PRN Reason: ambulation - Follow Up Plan Condition: GOOD Disposition: HOME/ ROUTINE Instructions: Diabetic Foot Care (DC), Meal Planning with Diabetes Exchanges ( DC), Altered Mental Status (GEN) Additional Instructions: FOLLOW UP WITH DR. DRUMMOND IN THE OFFICE IN 1 WEEK-----CALL TO MAKE YOUR APPT TIME. FOLLOW UP WITH DR. PALATHINGAL IN THE OFFICE SCHEDULED ON 06/02/17. CONTINUE ALL OF YOUR MEDICATIONS AT HOME USUAL. IF YOU HAVE ANY FURTHER CONCERNS OR QUESTIONS, CONTACT DR. DRUMMOND'S OFFICE. Referrals: Alva Rodas MD [Staff Provider] - Trevon Berry MD [Staff Provider] - Bernadette Drummond MD [Staff Provider] -
--- NOTE | 2017-05-29 14:52 | CP.PCM.PN ---
Subjective - Date & Time of Evaluation Date of Evaluation: 05/28/17 Time of Evaluation: 14:51 - Subjective Subjective: Patient today is still confused. Not eating well. Poor appetite. But more awake than yesterday. On examination: HEENT PERRLA, neck supple No thyromegaly was noted and no cervical adenopathy noted Chest bilateral good air entry, no wheezing or rales noted CVS regular heart sound, no murmur Abdomen soft and no organomegaly Extremities no pedal edema, no leg swelling, pedal pulses are good. Confused. Labs reviewed. Anemia noted. Assessment and recommendation: 76-year-old female with history of dementia, anemia, hypertension, diabetes, pacemaker. Admitted with altered mental status. Improving. Most likely secondary to metabolic and also drug induced. Continue to monitor. Will follow the patient More improving. Still poor appetite. Spoke to the family. If clinical stable will discharge the patient tomorrow Objective - Vital Signs/Intake and Output Vital Signs (last 24 hours): Temp Pulse Resp BP Pulse Ox 97.9 F 61 20 167/55 H 100 05/29/17 08:23 05/29/17 08:23 05/29/17 08:23 05/29/17 08:23 05/29/17 08:23 Intake and Output: 05/29/17 05/29/17 06:59 18:59 Intake Total 100 Balance 100 - Medications Medications: Current Medications Aspirin (Ecotrin) 81 mg PO DAILY [facility] Last Admin: 05/29/17 11:14 Dose: 81 mg Famotidine (Pepcid) 20 mg IVP DAILY [facility] Last Admin: 05/29/17 11:14 Dose: 20 mg Ferric Sodium Gluconate Complex (Ferrlecit) 125 mg IVPB DAILY [facility] Stop: 06/04/17 10:01 Last Admin: 05/29/17 11:14 Dose: 125 mg Heparin Sodium (Porcine) (Heparin) 5,000 units SC Q8 [facility] Last Admin: 05/29/17 13:57 Dose: 5,000 units Insulin Human Regular (Novolin R) 0 unit SC ACHS [facility] PRN Reason: Protocol Last Admin: 05/29/17 12:13 Dose: 3 unit Levothyroxine Sodium (Synthroid) 25 mcg PO DAILY@0630 [facility] Last Admin: 05/29/17 05:40 Dose: 25 mcg - Labs Labs: 05/29/17 11:49 05/29/17 11:49 PT 11.8 SECONDS (9.7-12.2) 05/27/17 07:20 INR 1.1 05/27/17 07:20 APTT 38 SECONDS (21-34) H 05/27/17 07:20
--- NOTE | 2017-06-01 09:00 | VASCLAB ---
PROCEDURE: Limited HISTORY: Altered Mental Status COMPARISON: None available. TECHNIQUE: Grayscale and duplex Doppler evaluation of the cervical carotid and vertebral arteries were performed. The common carotid, carotid bifurcations and cervical Internal Carotid Artery (ICA) and proximal External Carotid Artery (ECA) were evaluated. The vertebral arteries were evaluated for gross patency and flow direction. Report prepared by KAUSHIK Cueto FINDINGS: RIGHT CAROTID ARTERIES: 1. Common Carotid Artery: No significant focal plaque formation of the right common carotid artery. Maximum Peak Systolic velocity: 64 cm/sec: End-diastolic velocity 0 cm/sec. 2. Carotid Bifurcation: Calcific plaque formation. Maximum Peak Systolic velocity: 41 cm/sec: End-diastolic velocity 0 cm/sec. 3. Internal Carotid Artery: Plaque description: Calcific 3.1. Proximal Segment: Peak systolic velocity 53 cm/sec: End-diastolic velocity 9 cm/sec - % stenosis 0-15% 3.2. Middle Segment: Peak systolic velocity 38 cm/sec: End-diastolic velocity 7 cm/sec - % stenosis 0-15% 3.3. Distal Segment: Peak systolic velocity 54 cm/sec: End-diastolic velocity 12 cm/sec - % stenosis 0-15% 4. External Carotid Artery: No significant focal plaque formation. Peak systolic velocity 94 cm/sec 5. ICA/CCA Ratio: 1.1 LEFT CAROTID ARTERIES: 1. Not examined VERTEBRAL ARTERIES: 1. Right Vertebral Artery: The right vertebral artery flow direction is antegrade. OTHER FINDINGS: 1. Right Brachial Blood pressure: 150 mmHg. 2. Left Brachial Blood pressure: 160 mmHg. IMPRESSION: RIGHT: Duplex scan does not suggest hemodynamically significant stenosis of the right extracranial carotid arteries. Limited study. Patient unable to cooperate and refused completion of bilateral examination.
--- NOTE | 2017-06-01 11:38 | VASCLAB ---
PROCEDURE: HISTORY: Altered mental status COMPARISON: None available. TECHNIQUE: Grayscale and duplex Doppler evaluation of the cervical carotid and vertebral arteries were performed. The common carotid, carotid bifurcations and cervical Internal Carotid Artery (ICA) and proximal External Carotid Artery (ECA) were evaluated. The vertebral arteries were evaluated for gross patency and flow direction. Report prepared by Herve Hatch, BS, RVT FINDINGS: RIGHT CAROTID ARTERIES: 1. Common Carotid Artery: No significant focal plaque formation of the right common carotid artery. Maximum Peak Systolic velocity: 53 cm/sec: End-diastolic velocity 4 cm/sec. 2. Carotid Bifurcation: plaque formation. Maximum Peak Systolic velocity: 49 cm/sec: End-diastolic velocity 6 cm/sec. 3. Internal Carotid Artery: Plaque description: 3.1. Proximal Segment: Peak systolic velocity 58 cm/sec: End-diastolic velocity 11 cm/sec - % stenosis 0-15% 3.2. Middle Segment: Peak systolic velocity 38 cm/sec: End-diastolic velocity 9 cm/sec - % stenosis 0-15% 3.3. Distal Segment: Peak systolic velocity 55 cm/sec: End-diastolic velocity 8 cm/sec - % stenosis 0-15% 4. External Carotid Artery: No significant focal plaque formation. Peak systolic velocity 128 cm/sec 5. ICA/CCA Ratio: 1.1 LEFT CAROTID ARTERIES: 1. Common Carotid Artery: No significant focal plaque formation of the left common carotid artery. Maximum Peak Systolic velocity: 65 cm/sec: End-diastolic velocity 6 cm/sec. 2. Carotid Bifurcation: plaque formation. Maximum Peak Systolic velocity: 59 cm/sec: End-diastolic velocity 8 cm/sec. 3. Internal Carotid Artery: Plaque description: 3.1. Proximal Segment: Peak systolic velocity 79 cm/sec: End-diastolic velocity 11 cm/sec - % stenosis 0-15% 3.2. Middle Segment: Peak systolic velocity 48 cm/sec: End-diastolic velocity 7 cm/sec - % stenosis 0-15% 3.3. Distal Segment: Peak systolic velocity 56 cm/sec: End-diastolic velocity 11 cm/sec - % stenosis 0-15% 4. External Carotid Artery: No significant focal plaque formation. Peak systolic velocity 81 cm/sec 5. ICA/CCA Ratio: 1.2 VERTEBRAL ARTERIES: 1. Right Vertebral Artery: The right vertebral artery flow direction is antegrade. 2. Left Vertebral Artery: The left vertebral artery flow direction is antegrade. OTHER FINDINGS: 1. Right Brachial Blood pressure: 164 mmHg. 2. Left Brachial Blood pressure: mmHg. IMPRESSION: RIGHT: Duplex scan does not suggest hemodynamically significant stenosis of the right extracranial carotid arteries. LEFT: Duplex scan does not suggest hemodynamically significant stenosis of the left extracranial carotid arteries.
== END 2017-05-29 15:35 | disposition home or self-care (01) | DRG 92 ==
LOC: C.ER 11:55 → C.9E 14:02 → C.3T 20:28
PROVIDERS: ADMIT Internal Medicine; ATTEND Internal Medicine
DX: G92 Toxic encephalopathy (principal); M48.54XA Collapsed vertebra, not elsewhere classified, thoracic region, initial encounter for fracture; T42.6X5A Adverse effect of other antiepileptic and sedative-hypnotic drugs, initial encounter; E11.40 Type 2 diabetes mellitus with diabetic neuropathy, unspecified; G30.9 Alzheimer's disease, unspecified; F02.80 Dementia in other diseases classified elsewhere, unspecified severity, without behavioral disturbance, psychotic disturbance, mood disturbance, and anxiety; D50.9 Iron deficiency anemia, unspecified; G81.91 Hemiplegia, unspecified affecting right dominant side; E03.9 Hypothyroidism, unspecified; E78.00 Pure hypercholesterolemia, unspecified; E78.5 Hyperlipidemia, unspecified; H54.0 Blindness, both eyes; I10 Essential (primary) hypertension; Z95.0 Presence of cardiac pacemaker

== ENCOUNTER 2017-05-31 19:38 | Inpatient (IN) | payer MEDICARE, MEDICAID ==
[2017-05-31 19:38] VITALS: BMI 17.9
[2017-05-31] MEDS ORDERED: Sodium Chloride 0.9% 500 ML IV ONE ×4 (20:00→20:31)
--- NOTE | 2017-05-31 20:19 | C.PDOC ---
History Of Present Illness Azeem is a 76 y/o female with a PMHx of dementia, who was admitted to the hospital 6 days ago for worsening agitation. There she had extensive negative work up and was discharged home. Patient has not been taking her anti-psychotics , as PMD is currently adjusting her medications to optimize medication regimen. Yesterday and today she has had no PO intake. Patient has been yelling, agitated , saying people want to kill her, and saying she is going to harm herself, prompting family to bring her to the ED. PMD: Dr. Bernadette Drummond Time Seen by Provider: 05/31/17 19:46 Chief Complaint (Nursing): Abdominal Pain History Per: Patient, Family History/Exam Limitations: no limitations Onset/Duration Of Symptoms: Days (x 2) Current Symptoms Are (Timing): Still Present Past Medical History Vital Signs: Last Vital Signs Temp 99.1 F 05/31/17 19:41 Pulse 60 05/31/17 19:49 Resp 15 05/31/17 19:49 BP 70/43 L 05/31/17 19:49 Pulse Ox 100 05/31/17 19:49 - Medical History PMH: Anemia, Diabetes, Fractures (T12 2014), Gall Bladder Disease (gallstones), HTN, Hypercholesterolemia, Hypothyroidism Denies: Chronic Kidney Disease Surgical History: Cholecystectomy (removal of gallstones 10YRS AGO), Pacemaker - [facility] Procedures TRANSFUSE NONAUT RED BLOOD CELLS IN PERIPH VEIN, PERC (02/22/16) Family History: States: Unknown Family Hx - Social History Hx Tobacco Use: No Hx Alcohol Use: No Hx Substance Use: No - Immunization History Hx Tetanus Toxoid Vaccination: No Hx Influenza Vaccination: No Hx Pneumococcal Vaccination: No ED Course And Treatment O2 Sat by Pulse Oximetry: 100 Disposition - Disposition
[2017-05-31 20:24] LABS: BASO % 0.2 % (0.0-2.0); EOS % 0.2 % (0.0-4.0); HEMATOCRIT 24.2 % (34.0-47.0); LYMPH # 1.7 K/uL (1.0-4.3); LYMPH % 24.7 % (20.0-40.0); MEAN CELL VOLUME 64.9 fL (81.0-99.0); MEAN CORPUSCULAR HEMOGLOBIN 21.5 pg (27.0-31.0); MEAN CORPUSCULAR HGB CONC 33.1 g/dL (33.0-37.0); MEAN PLATELET VOLUME 9.1 fL (7.2-11.7); MONO # 0.8 K/uL (0.0-0.8); MONO % 11.4 % (0.0-10.0); RED CELL DISTRIBUTION WIDTH 16.6 % (11.5-14.5); WHITE BLOOD COUNT 6.9 K/uL (4.8-10.8)
--- NOTE | 2017-05-31 20:24 | C.PDOC ---
History Of Present Illness Azeem is a 76 y/o female with a PMHx of dementia, who was admitted to the hospital 6 days ago for worsening agitation. There she had extensive negative work up and was discharged home. Patient has not been taking her anti-psychotics , as PMD is currently adjusting her medications to optimize medication regimen. Yesterday and today she has been refusing food. Patient has been yelling, agitated, saying people want to kill her, and saying she is going to harm herself, prompting family to bring her to the ED. PMD: Dr. Bernadette Drummond Time Seen by Provider: 05/31/17 19:46 Chief Complaint (Nursing): Abdominal Pain History Per: Family History/Exam Limitations: no limitations Onset/Duration Of Symptoms: Days (x 2) Current Symptoms Are (Timing): Still Present Additional History Per: Patient Past Medical History Reviewed: Historical Data, Nursing Documentation, Vital Signs Vital Signs: Last Vital Signs Temp 99.1 F 05/31/17 19:41 Pulse 80 05/31/17 20:36 Resp 15 05/31/17 20:36 BP 155/50 H 05/31/17 20:36 Pulse Ox 100 05/31/17 20:57 - Medical History PMH: Anemia, Dementia, Diabetes, Fractures (T12 2014), Gall Bladder Disease ( gallstones), HTN, Hypercholesterolemia, Hypothyroidism Denies: Chronic Kidney Disease Surgical History: Cholecystectomy (removal of gallstones 10YRS AGO), Pacemaker - [facility] Procedures TRANSFUSE NONAUT RED BLOOD CELLS IN PERIPH VEIN, PERC (02/22/16) Family History: States: Unknown Family Hx - Social History Hx Tobacco Use: No Hx Alcohol Use: No Hx Substance Use: No - Immunization History Hx Tetanus Toxoid Vaccination: No Hx Influenza Vaccination: No Hx Pneumococcal Vaccination: No Review Of Systems Review Of Systems: ROS cannot be obtained secondary to pt's inabilty to answer questions. Physical Exam - Physical Exam Appears: No Acute Distress, Agitated (and yelling) Skin: Normal Color, Warm, Dry Head: Atraumatic, Normacephalic Eye(s): bilateral: Normal Inspection, PERRL, EOMI Nose: Normal Neck: Normal, Supple Chest: Symmetrical, Other (pacemaker to L wall) Cardiovascular: Rhythm Regular, No Murmur Respiratory: Normal Breath Sounds, No Accessory Muscle Use Gastrointestinal/Abdominal: Normal Exam, Soft, No Tenderness Extremity: Normal ROM, No Deformity Neurological/Psych: Other (Moving all extremities wildly) ED Course And Treatment - Laboratory Results Result Diagrams: 05/31/17 20:11 05/31/17 20:11 O2 Sat by Pulse Oximetry: 100 (RA) Pulse Ox Interpretation: Normal Medical Decision Making Medical Decision Making: Time: 20:02 Initial Plan: --Ordered labs --EKG --CXR --Started on IV fluids --Paged Dr. Drummond EKG shows atrial paced rhythm at 60bpm with RBBB, unchanged from prior. cxray negative. Labs at baseline 8:10PM. Spoke to Dr. Drummond, who states symptoms are likely secondary to her dementia, and is requesting Ativan be given. She will be admitted to Med/Surg for altered mental status. 8:59PM On reevaluation, BP has improved after IVF and patient sleeping comfortably after ativan. Disposition - Disposition Disposition: HOSPITALIZED Disposition Time: 20:59 Condition: FAIR - Clinical Impression Clinical Impression: Agitated - Scribe Statement The provider has reviewed the documentation as recorded by the Scribe Yady Rodriguez All medical record entries made by the Charibe were at my direction and personally dictated by me. I have reviewed the chart and agree that the record accurately reflects my personal performance of the history, physical exam, medical decision making, and the department course for this patient. I have also personally directed, reviewed, and agree with the discharge instructions and disposition.
[2017-05-31 20:36] LABS: CHLORIDE 98 mmol/L (98-107)
[2017-05-31 20:37] LABS: POTASSIUM 3.9 mmol/L (3.6-5.2); SODIUM 133 mmol/L (132-148)
[2017-05-31 20:39] LABS: ALB/GLOB RATIO 1.5 (1.0-2.1); CARBON DIOXIDE 20 mmol/L (22-30); GFR AFRICAN-AMERICAN > 60; TOTAL PROTEIN 6.5 g/dL (6.3-8.3)
[2017-05-31 20:40] LABS: ALKALINE PHOSPHATASE 67 U/L (38-126); ALT/SGPT 31 U/L (9-52); AST/SGOT 33 U/L (14-36); BLOOD UREA NITROGEN 12 mg/dL (7-17); CALCIUM 9.5 mg/dl (8.6-10.4); GLUCOSE,RANDOM 198 mg/dL (65-105)
--- NOTE | 2017-05-31 21:27 | CP.PCM.HP ---
History of Present Illness - History of Present Illness History of Present Illness: family called me today that she is not doing well at home not eating agitated accusing afraid of somebody harming very anxious I told the family to bring her to ed spoke to ed labs nonspecific recenlty workup done will get psych consult added mariaa closely monitor Chief complaint: Altered mental status. History present illness: 76-year-old female with history of hypertension, diabetes, anemia. Patient also having advancing dementia, recently seen by psychiatrist. Patient medication was recently adjusted, Lyrica 50 mg stopped, patient was started on Depakote, Aricept. After starting the medication, patient started having slowly worsening condition. According to the family patient was not taking anything by mouth for 3 days, she was becoming more and weak, she was also not eating well. Family was trained to give the liquid diet, but the patient was spitting out. She was also having increasing sleepy, very slow to respond, and the family was brought her to the emergency room. In the emergency room patient was somewhat very sleepy, not responding. She was looking very dry mucosa. In the past patient had a T12 compression fracture, and was having some pain around the time. She was also severely anemic, receiving intravenous iron infusion periodically A month ago patient was seen by me in the office, at the time patient was awake and responding, and the alert. Patient was ambulating with a cane. Past medical history hypertension, diabetes Past surgical history: Cataract surgery, cholecystectomy, pacemaker. Family history: Father mother natural cause. Patient has 3 brother to are okay, one brother , she also has a 3 sister. Social history: Patient denies any alcohol or smoking. She drinks coffee daily. No current exercise. Is going to the adult daycare Current medications reviewed Review of systems: Patient occasionally having headache, denies any sinus symptoms, no chest pain, no shortness of breath noted, patient had a right eye injections in the past secondary to diabetic retinopathy. Burning stop noted. Denies any urinary symptoms. On and off muscle pain noted On examination: HEENT PERRLA, neck supple, thin and emaciated, pale mucous membrane No thyromegaly was noted and no cervical adenopathy noted Chest bilateral good air entry, no wheezing or rales noted CVS regular heart sound, no murmur Abdomen soft and no organomegaly Extremities no pedal edema, no leg swelling, pedal pulses are good. HIDE PASTER drowsy, poorly responding. Responding to deep stability. No focal deficit noted Assessment/recommendation: 76-year-old female with history of anemia, hypertension, diabetes, history of pacemaker. T12 vertebral compression fracture in the past. Worsening dementia. Now admitted with worsening altered mental status. IV fluid, IV hydration, glucose control, DVT and GI prophylaxis. Neurology, psychology evaluation. Will follow the patient Present on Admission - Present on Admission Any Indicators Present on Admission: No History of DVT/PE: No History of Uncontrolled Diabetes: No Urinary Catheter: No Decubitus Ulcer Present: No Past Patient History - Past Medical History & Family History Past Medical History?: Yes - Past Social History Smoking Status: Never Smoked - CARDIAC Hx Hypercholesterolemia: Yes Hx Hypertension: Yes Hx Pacemaker: Yes - PULMONARY Hx Respiratory Disorders: No - NEUROLOGICAL Hx Dementia: Yes - HEENT Hx HEENT Problems: Yes Hx Blind: Yes (LEFT EYE) Other/Comment: LASER SURGERY ON RIGHT RETINA 2013, DUE TO RETINAL BLEEDING - RENAL Hx Chronic Kidney Disease: No - ENDOCRINE/METABOLIC Hx Hypothyroidism: Yes - HEMATOLOGICAL/ONCOLOGICAL Hx Anemia: Yes - INTEGUMENTARY Hx Dermatological Problems: No - MUSCULOSKELETAL/RHEUMATOLOGICAL Hx Fractures: Yes (2014) - GASTROINTESTINAL Hx Gall Bladder Disease: Yes (gallstones) - GENITOURINARY/GYNECOLOGICAL Hx Genitourinary Disorders: No - PSYCHIATRIC Hx Substance Use: No - SURGICAL HISTORY Hx Cholecystectomy: Yes (removal of gallstones 10YRS AGO) - ANESTHESIA Hx Anesthesia: Yes Hx Anesthesia Reactions: No Hx Malignant Hyperthermia: No Meds Allergies/Adverse Reactions: Allergies Allergy/AdvReac Type Severity Reaction Status Date / Time No Known Allergies Allergy Verified 05/31/17 19:45 Results - Vital Signs Recent Vital Signs: Last Vital Signs Temp 99.1 F 05/31/17 19:41 Pulse 60 05/31/17 21:22 Resp 19 05/31/17 21:22 BP 148/46 L 05/31/17 21:22 Pulse Ox 100 05/31/17 21:22 - Labs Result Diagrams: 05/31/17 20:11 05/31/17 20:11 Labs: Laboratory Results - last 24 hr 05/31/17 05/31/17 20:11 20:11 WBC 6.9 RBC 3.74 L Hgb 8.0 L Hct 24.2 L MCV 64.9 L MCH 21.5 L MCHC 33.1 RDW 16.6 H Plt Count 304 MPV 9.1 Neut % (Auto) 63.5 Lymph % (Auto) 24.7 Archuleta % (Auto) 11.4 H Eos % (Auto) 0.2 Baso % (Auto) 0.2 Neut # 4.4 Lymph # 1.7 Archuleta # 0.8 Eos # 0.0 Baso # 0.0 Sodium 133 Potassium 3.9 Chloride 98 Carbon Dioxide 20 L Anion Gap 19 BUN 12 Creatinine 0.8 Est GFR ( Amer) > 60 Est GFR (Non-Af Amer) > 60 Random Glucose 198 H Calcium 9.5 Total Bilirubin 2.0 H AST 33 ALT 31 Alkaline Phosphatase 67 Total Protein 6.5 Albumin 3.9 Globulin 2.6 Albumin/Globulin Ratio 1.5
[2017-06-01] MEDS: Levothyroxine 25 MCG TAB PO SCH ×3 (06:07→07:43)
--- NOTE | 2017-06-01 08:18 | CP.PCM.PN ---
Subjective - Date & Time of Evaluation Date of Evaluation: 06/01/17 Time of Evaluation: 08:14 - Subjective Subjective: Patient is more awake than yesterday. But still refusing to eat and also refusing to take medications. Disoriented. No other major active symptoms. Psychiatric evaluation currently pending. We'll continue the current treatment at this time. Altered mental status. Delirium. May be related to the dementia. Anemia. Hypertension. Diabetes. Pacemaker. We'll continue to monitor. Continue the current medications. Objective - Vital Signs/Intake and Output Vital Signs (last 24 hours): Temp Pulse Resp BP Pulse Ox 98.1 F 60 18 148/48 L 98 06/01/17 07:05 06/01/17 07:05 06/01/17 07:05 06/01/17 07:05 06/01/17 07:05 Intake and Output: 06/01/17 06/01/17 06:59 18:59 Intake Total 10 Balance 10 - Medications Medications: Current Medications Aspirin (Ecotrin) 81 mg PO DAILY [facility] Folic Acid (Folic Acid) 1 mg PO DAILY [facility] Levothyroxine Sodium (Synthroid) 25 mcg PO DAILY@0630 [facility] Last Admin: 06/01/17 07:43 Dose: 25 mcg Losartan Potassium (Cozaar) 50 mg PO DAILY [facility] Mirtazapine (Remeron) 7.5 mg PO HS [facility] Last Admin: 05/31/17 22:15 Dose: Not Given Quetiapine Fumarate (Seroquel) 25 mg PO DAILY [facility] - Labs Labs: 05/31/17 20:11 05/31/17 20:11
[2017-06-01 09:33] LABS: RBC URINE 1 /hpf (0-3); URINE BACTERIA MANY (<OCC); URINE BILIRUBIN NEGATIVE (NEGATIVE); URINE BLOOD 1+ (NEGATIVE); URINE COLOR Yellow (YELLOW); URINE GLUCOSE (UA) 2+ mg/dL (Normal); URINE KETONE NEGATIVE (NEGATIVE); URINE LEUKOCYTE ESTERASE NEG Leu/uL (Negative); URINE PROTEIN 1+ mg/dL (NEGATIVE); URINE UROBILINOGEN NORMAL mg/dL (0.2-1.0); WBC URINE 1 /hpf (0-5)
--- NOTE | 2017-06-01 09:52 | RAD ---
Chest x-ray single frontal view History: Agitated. Comparison: 05/25/2017 Findings: Biapical pleural thickening with upper lobe granulomatous changes. Mild venous congestion. Top normal heart size. Calcification at the aortic knob. Left-sided pacemaker. Surgical clips in the right upper abdomen. Degenerative changes in the spine and shoulders. Impression: Biapical pleural thickening with upper lobe granulomatous changes. Mild venous congestion. Top normal heart size. Calcification at the aortic knob. Left-sided pacemaker.
--- NOTE | 2017-06-01 13:43 | PCM.PSYCH ---
Initial Psychiatric Evaluation - Initial Psychiatric Evaluation Type of Admission: Voluntary Chief Complaint (in patient's own words): She couldn't report but was seen b/c of agitation on top of her dementia. History of Present Illness and Precipitating Events: The patient is seen, chart reviewed and case discussed. Consultation was requested for her altered mental status change. She is seen with the bois forte Oriental [employer] speaker who is a medical staff. The patient is a 76-year-old [place] Palestinian female, with 4 children, house , living with her daughter, immig[place]. 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 She has not been on medications until recently when a psychiatrist started Celexa and then admitted [facility] because the patient was periodically getting agitated. She recently had an admission with AMS and improved somewhat but today after discharge she got worse again and the family brought her back. Her daughter reported that the patient was medically clear and her doctor stopped all medications and now put her on Seroquel 25 and Remeron 7.5. The patient had not been eating, was agitated and very confused/disoriented. She said things like they are coming to get me and other paranoid remarks. Past psych history: Denied Medical history: As per chart Family psych history: Denied Current Medications: Active Medications Generic Name Dose Route Start Last Admin Trade Name Jermain PRN Reason Stop Dose Admin Aspirin 81 mg 06/01/17 10:00 06/01/17 10:05 Ecotrin PO 81 mg DAILY [facility] Administration Folic Acid 1 mg 06/01/17 10:00 06/01/17 10:05 Folic Acid PO 1 mg DAILY [facility] Administration Levothyroxine Sodium 25 mcg 06/01/17 06:30 06/01/17 07:43 Synthroid PO 25 mcg DAILY@0630 [facility] Administration Losartan Potassium 50 mg 06/01/17 10:00 06/01/17 10:05 Cozaar PO 50 mg DAILY [facility] Administration Mirtazapine 7.5 mg 05/31/17 22:00 05/31/17 22:15 Remeron PO Not Given HS [facility] Quetiapine Fumarate 25 mg 06/01/17 10:00 06/01/17 10:05 Seroquel PO 25 mg DAILY [facility] Administration Past Psychiatric History - Past Psychiatric History Previous Treatment History: None Pertinent Medical Hx (Current Medical&Sleep Prob, Allergies): Allergies Allergy/AdvReac Type Severity Reaction Status Date / Time No Known Allergies Allergy Verified 05/31/17 19:45 Atorvastatin [Lipitor] 10 mg PO HS 03/30/14 Aspirin [Ecotrin] 81 mg PO DAILY 07/02/16 Insulin Detemir [Levemir] 20 unit SC ACB 07/02/16 Iron Ps Cmplx/Vit B12/FA [Ferrex 150 Forte Capsule] 1 cap PO DAILY 07/02/16 Calcium Carbonate/Vitamin D3 [Calcium 600 + Vit D Tablet] 1 tab PO DAILY Folic Acid 1 mg PO DAILY 05/25/17 Levothyroxine [Synthroid] 25 mcg PO DAILY 05/25/17 Linagliptin [Tradjenta] 5 mg PO DAILY 05/25/17 Losartan Potassium 50 mg PO DAILY 05/25/17 Multivit-Min/FA/Lycopen/Lutein [Centrum Silver Tablet] 1 tab PO DAILY 05/25/17 metFORMIN [glucOPHAGE] 500 mg PO BID 05/25/17 ALPRAZolam [Xanax] 0.25 mg PO HS PRN #0 05/29/17 Walker [Rolling Walker] 1 dev XX PRN PRN #1 dev 05/29/17 Review of Systems - Neurological Neurological: Confusion - Psychiatric Psychiatric: Abnormal Sleep Pattern, Behavioral Changes, Confusion, Difficulty Concentrating, Hallucinations, Irritability, Paranoia. absent: Homicidal Ideation, Suicidal Ideation Mental Status Examination - Personal Presentation Personal Presentation: Looks stated age - Affect Affect: Constricted - Motor Activity Motor Activity: Psychomotor Agitation (on and off) - Reliability in Providing Information Reliability in Providing Information: Poor, due to cognitve impairment - Speech Speech: Disorganized - Mood Mood: Other (irate at times, angry and perplexed at others) - Formal Thought Process Formal Thought Process: Delusions, Paranoia, Loosening of associations - Cognitive Functions Orientation: Person, Time Sensorium: Drowsy Attention/Concentration: Easily distracted Estimate of Intelligence: Average Judgement: Imparied, as evidence by: Poor judgement Memory: Recent impaired, as evidence by: Inability to recall events of the day, Remote impaired as evidenced by: Inability to recall sig life events - Risk Risk: Diminished functioning - Strength & Assets Inventory Strength & Assets Inventory: Family support DSM 5 DX - DSM 5 DSM 5 Diagnosis: Dementia of Alzheimer's type ..with behavioral problems Delirium of unknown causes - Recommended/Plan of Treatment Treatment Recommendations and Plan of Treatment: Seroquel seems to have calmed her down I would not use it log due to stroke risk and over-sedation Remeron, too, which should help her appetite too You may consider periactin for sleep and appetite, too Consider inderal for agitation prn haldol for severe agitation Do not use benzos due to more confusion Support and frequent orientation 33 min
[2017-06-02] MEDS: Levothyroxine 25 MCG TAB PO SCH (05:52)
--- NOTE | 2017-06-02 12:51 | PCM.PYCHPN ---
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 She is much better today; more lucid, smiling, ate breakfast and slept None of the psyhotic/confused remarks noted today Support given No med changes Will sign off Medication Change: No Medical Record Reviewed: Yes Mental Status Examination - Cognitive Function Orientation: Person Memory: Impaired Attention: Poor Concentration: Poor Fund of Knowledge: Poor - Mood Mood: Neutral - Affect Affect: Broad - Speech Speech: Slurred - Formal Thought Process Formal Thought Process: No Impairment - Suicidal Ideation Suicidal Ideation: No - Homicidal Ideation Homicidal Ideation: No Goal/Treatment Plan - Goal/Treatment Plan Need for Continued Stay: Other (medical) Progress Toward Problem(s) and Goals/Treatment Plan: Seroquel seems to have calmed her down I would not use it log due to stroke risk and over-sedation. Remeron should help her appetite too You may consider periactin for sleep and appetite, too Consider inderal for agitation prn haldol for severe agitation Do not use benzos due to more confusion Support and frequent orientation
--- NOTE | 2017-06-02 18:55 | CP.PCM.PN ---
Subjective - Date & Time of Evaluation Date of Evaluation: 06/02/17 Time of Evaluation: 18:54 - Subjective Subjective: pt is sitting up with family mild agitation noted no fever no chest pain poorly eating no leg edema seen by psychiatrist will the megace added heparin spoke to family will repeat the labs PT IVF Objective - Vital Signs/Intake and Output Vital Signs (last 24 hours): Temp Pulse Resp BP Pulse Ox 98.1 F 60 18 102/45 L 100 06/02/17 16:00 06/02/17 16:00 06/02/17 16:00 06/02/17 16:00 06/02/17 16:00 Intake and Output: 06/02/17 06/02/17 06:59 18:59 Intake Total 400 240 Balance 400 240 - Medications Medications: Current Medications Aspirin (Ecotrin) 81 mg PO DAILY [facility] Last Admin: 06/02/17 10:34 Dose: 81 mg Folic Acid (Folic Acid) 1 mg PO DAILY [facility] Last Admin: 06/02/17 10:34 Dose: 1 mg Levothyroxine Sodium (Synthroid) 25 mcg PO DAILY@0630 [facility] Last Admin: 06/02/17 05:52 Dose: 25 mcg Losartan Potassium (Cozaar) 50 mg PO DAILY [facility] Last Admin: 06/02/17 10:34 Dose: 50 mg Mirtazapine (Remeron) 7.5 mg PO HS [facility] Last Admin: 06/01/17 21:02 Dose: 7.5 mg - Labs Labs: 05/31/17 20:11 05/31/17 20:11
[2017-06-02] MEDS: Megestrol Acetate 40 mg/ml Cup PO SCH (19:21)
[2017-06-02] MEDS: Sodium Chloride 0.9% 1,000 ML IV SCH (20:00)
[2017-06-02] MEDS: (Novolin R) Insulin Human Regular 100 units/ml vial SC SCH (21:20)
[2017-06-03] MEDS: Levothyroxine 25 MCG TAB PO SCH (05:41)
[2017-06-03] MEDS: Sodium Chloride 0.9% 1,000 ML IV SCH (05:43)
[2017-06-03 07:18] LABS: BASO % 0.5 % (0.0-2.0); EOS % 0.8 % (0.0-4.0); HEMATOCRIT 21.7 % (34.0-47.0); LYMPH # 1.3 K/uL (1.0-4.3); LYMPH % 27.7 % (20.0-40.0); MEAN CORPUSCULAR HEMOGLOBIN 21.4 pg (27.0-31.0); MEAN CORPUSCULAR HGB CONC 32.4 g/dL (33.0-37.0); MEAN PLATELET VOLUME 8.5 fL (7.2-11.7); MONO # 0.7 K/uL (0.0-0.8); MONO % 14.2 % (0.0-10.0); NRBC % 0.2 % (0.0-2.0); RED CELL DISTRIBUTION WIDTH 17.5 % (11.5-14.5); WHITE BLOOD COUNT 4.8 K/uL (4.8-10.8)
[2017-06-03 07:44] LABS: CHLORIDE 101 mmol/L (98-107); SODIUM 137 mmol/L (132-148)
[2017-06-03 07:45] LABS: POTASSIUM 3.7 mmol/L (3.6-5.2)
[2017-06-03 07:47] LABS: ALB/GLOB RATIO 1.4 (1.0-2.1); ALKALINE PHOSPHATASE 49 U/L (38-126); AST/SGOT 35 U/L (14-36); BILIRUBIN,TOTAL 1.4 mg/dL (0.2-1.3); BLOOD UREA NITROGEN 11 mg/dL (7-17); CARBON DIOXIDE 22 mmol/L (22-30); GFR AFRICAN-AMERICAN > 60; TOTAL PROTEIN 5.6 g/dL (6.3-8.3)
[2017-06-03 07:48] LABS: ALT/SGPT 45 U/L (9-52); CALCIUM 8.3 mg/dl (8.6-10.4); GLUCOSE,RANDOM 257 mg/dL (65-105)
[2017-06-03] MEDS: (Novolin R) Insulin Human Regular 100 units/ml vial SC SCH ×2 (09:10→13:57)
[2017-06-03] MEDS: Megestrol Acetate 40 mg/ml Cup PO SCH (09:10)
[2017-06-03 15:33] VITALS: BP 144/50; PULSE 59; RESP 20; TEMP 98.1; O2SAT 98
--- NOTE | 2017-06-03 17:03 | CP.PCM.PN ---
Subjective - Date & Time of Evaluation Date of Evaluation: 06/03/17 Time of Evaluation: 14:00 - Subjective Subjective: DISPOSITION DISCUSSED WITH DR. KHAN AND PT CLEARED FOR D/C HOME. PSYCH ALSO CLEARED PT. DISCUSSED D/C AND F/U PLAN WITH DAUGHTER AT BEDSIDE. LABS AND MEDS REVIEWED WITH DR. KHAN. WILL CONTINUE REMERON, SEROQUEL, AND MEGACE. SEROQUEL RECOMMENDED FOR SHORT TERM USE; FAMILY WILL DISCUSS WITH DR. KHAN NEXT WEEK DURING F/U VISIT. PT HAD F/U APPT WITH DR. PULIDO YESTERDAY, HOWEVER, THIS WAS CANCELLED 2/2 HOSPITALIZATION. FAMILY WILL TAKE PT TO F/U WITH HER WITHIN THE WEEK. NO FURTHER ORDERS. Objective - Vital Signs/Intake and Output Vital Signs (last 24 hours): Temp Pulse Resp BP Pulse Ox 98.1 F 59 L 20 144/50 L 98 06/03/17 15:33 06/03/17 15:33 06/03/17 15:33 06/03/17 15:33 06/03/17 15:33 Intake and Output: 06/03/17 06/03/17 06:59 18:59 Intake Total 920 Balance 920 - Labs Labs: 06/03/17 07:07 06/03/17 07:07
--- NOTE | 2017-06-04 10:58 | CARD ---
APPROVED REPORT EKG Measurement Heart [id number] MD [id number] <Conclusion> Atrial-paced rhythm Right bundle branch block Abnormal ECG
== END 2017-06-03 15:54 | disposition home or self-care (01) | DRG 57 ==
LOC: C.ER 19:38 → C.9E 20:11 → C.6T 21:51 → C.9E 22:00 → C.6T 22:32
PROVIDERS: ADMIT Internal Medicine; ATTEND Internal Medicine
DX: G30.9 Alzheimer's disease, unspecified (principal); F05 Delirium due to known physiological condition; E11.9 Type 2 diabetes mellitus without complications; D64.9 Anemia, unspecified; I10 Essential (primary) hypertension; E03.9 Hypothyroidism, unspecified; F02.81 Dementia in other diseases classified elsewhere, unspecified severity, with behavioral disturbance; E78.00 Pure hypercholesterolemia, unspecified; H54.42 Blindness, left eye, normal vision right eye; Z90.49 Acquired absence of other specified parts of digestive tract; Z95.0 Presence of cardiac pacemaker